=== PATIENT | female | born 1985 | race Two or more races ===

== ENCOUNTER 2025-02-15 14:26 | Emergency (ER) | payer MEDICAID, SELFPAY ==
--- NOTE | 2025-02-15 14:31 | EKG_ITS ---
[facility] Test Date: 2025-02-15 Pat Name: DARLENE ABARCA Department: Room: - Gender: Female Floor Renovator: : 1985 Requested By: ED Temporary Provider Order Number: [id number] Reading MD: ED Temporary Provider Measurements Intervals [place] Rate: 92 P: -8 PA: 130 QRS: 19 QRSD: 96 T: 57 QT: 353 QTc: 439 Interpretive Statements SINUS RHYTHM LOW QRS VOLTAGE IN PRECORDIAL LEADS [QRS DEFLECTION < 1.0 mV IN CHEST LEADS] No previous ECG available for comparison /store/S0/[id number]
[2025-02-15 14:48] VITALS: BP 164/97; PULSE 99; RESP 26; TEMP 37; O2SAT 96
--- NOTE | 2025-02-15 15:04 | XR_ITS ---
Examination: PA lateral chest 2 views TECHNIQUE: Upright PA lateral chest 2 views Exam date and time: February 16, 2024 at 1659 hours INDICATIONS: Onset chest pain today FINDINGS: Normal heart size. Lungs are clear. The osseous structures are intact IMPRESSION: No active disease
--- NOTE | 2025-02-15 15:06 | PD.EDRME ---
Rapid Medical Screening Exam E Arrival date/time: 02/15/25 14:26 39-year-old female presents to the Emergency Department for complaint of shortness of breath Chief Complaint: Shortness of Breath/Dyspnea Vital signs: Vital Signs Temperature 98.6 F 02/15/25 14:48 Pulse Rate 99 02/15/25 14:48 Respiratory Rate 26 H 02/15/25 14:48 Blood Pressure 164/97 H 02/15/25 14:48 Pulse Oximetry (%) 96 02/15/25 14:48 Oxygen Delivery Method Room Air 02/15/25 14:48
[2025-02-15 15:39] LABS: Basophils % (Auto) 0 % (0-2.5); Eosinophils % (Auto) 1 % (0-10); Hemoglobin 13.5 g/dL (12.0-16.0); Lymphocytes # (Auto) 2.1 Thou/mm3 (1.0-4.8); Lymphocytes % (Auto) 17 % (10-50); Mean Corpuscular HGB Conc 34.6 g/dl (31.0-37.0); Mean Corpuscular Hemoglobin 26.5 pg (25.0-35.0); Mean Corpuscular Volume 77 fL (80-100); Monocytes % (Auto) 3 % (0-12); Neutrophils # (Auto) 9.6 Thou/mm3 (1.8-7.7); Neutrophils % (Auto) 78 % (37-80); Platelet Count 301 Thou/mm3 (140-440); RDW Standard Deviation 42.3 fL (36.4-46.3); Red Blood Count 5.09 Miln/mm3 (4.00-5.20); White Blood Count 12.3 Thou/mm3 (3.6-11.0)
[2025-02-15 15:40] LABS: Eosinophils # (Auto) 0.1 Thou/mm3 (0.0-0.5); Immature Granulocytes % (Auto) 1 % (0-0); Immature Granulocytes Auto 0.07 Thou/mm3 (0.00-0.00); Monocytes # (Auto) 0.4 Thou/mm3 (0.0-0.8); Nucleated Red Blood Cell % 0 /100 WBC (0)
[2025-02-15 15:58] LABS: B-Type Natriuretic Peptide < 20 pg/mL (0-100)
[2025-02-15 15:59] LABS: INR 0.9 (0.9-1.3); Partial Thromboplastin Time 24.7 Seconds (22.0-36.0); Prothrombin Time 10.4 Seconds (9.0-12.2)
[2025-02-15 16:00] LABS: Alanine Aminotransferase 23 U/L (10-49); Albumin, Serum 4.5 gm/dL (3.5-5.0); Albumin/Globulin Ratio 1.4 (1.2-2.2); Alkaline Phosphatase 92 U/L (46-116); Anion Gap 11 (7-16); Aspartate Amino Transferase 37 U/L (0-34); BUN/Creatinine Ratio 10 Ratio (12-20); Bilirubin,Total 0.3 mg/dL (0.3-1.2); Blood Urea Nitrogen 9 mg/dL (9-23); Calcium 9.3 mg/dL (8.3-10.6); Calcium (Corrected) 9.3 mg/dL (8.5-10.1); Carbon Dioxide 24.9 mMol/L (20.0-31.0); Chloride 104 mMol/L (98-107); Creatinine (Component) 0.9 mg/dL (0.6-1.3); Estimated Creatinine Clearance 146.7 mL/min (>60); Globulin 3.2 gm/dL (2.3-3.5); Glucose 135 mg/dL (74-106); Magnesium 1.8 mg/dL (1.6-2.6); Osmolality,Calculated 280 (275-295); Potassium 3.6 mMol/L (3.4-5.1); Sodium 140 mMol/L (136-145); Total Protein 7.7 gm/dL (5.7-8.2); Troponin I < 0.020 ng/mL (0.0-0.045); eGFR > 60 See Note
--- NOTE | 2025-02-15 17:21 | PD.EDSOB ---
ED SOB =RME/HPI General Chief Complaint: Shortness of Breath/Dyspnea Stated Complaint: SENT BY [facility] FOR O2 SAT OF 90% Arrival date/time: 02/15/25 14:26 Limitations: no limitations RME / HPI RME / HPI Narrative: 02/15/25 14:26 39-year-old female presents to the Emergency Department for complaint of shortness of breath DR. ALVA MAIN ED EVALUATION: 39 year old female with no known past medical history presents to the Emergency Department accompanied by her friend with complaint of shortness of breath since this morning. Patient states she has been grasping for air. Associated symptoms include facial numbness and tingling and a mild headache. Patient denies any tobacco, alcohol, or substance use. Related Data Previous Rx's ?Medication ?Instructions ?Recorded hydrocodone 5 mg-acetaminophen 300 1 tab PO QID PRN pain #14 tabs 09/03/18 mg tablet (Vicodin) naproxen sodium 275 mg tablet 275 mg PO Q8H PRN pain #20 tabs 09/03/18 albuterol sulfate 90 mcg/actuation 2 inh inhalation Q6H PRN shortness 02/15/25 breath activated powder inhaler of breath #1 ea buspirone 7.5 mg tablet 7.5 mg PO BID #20 tabs 02/15/25 Allergies Allergy/AdvReac Type Severity Reaction Status Date / Time No Known Allergies Allergy Verified 02/15/25 14:29 Review of Systems Review of Systems Systems Reviewed: All systems reviewed, normal except as documented Narrative Review of Systems: GEN: No fever, no chills, no weight loss EYES: No discharge, no visual changes, no pain HEENT: No ear pain, no congestion, no sore throat PULM: + shortness of breath, no cough, no congestion CV: No chest pain, no dyspnea on exertion, no palpitations GI: No nausea, no vomiting, no diarrhea, no pain, no constipation : No frequency, no urgency and no dysuria MUSC/SKEL: No joint pain, no back pain SKIN: No rash PSYCH: No hallucinations, no depression HEME/LYMPH: No easy bleeding or bruising tendencies NEURO: No weakness, + facial numbness and tingling, + mild headache Past Medical History Social History SMOKING STATUS: Never smoker SUBSTANCE USE: does not use ALCOHOL: Never ED Exam General Limitations: Present no limitations General appearance: Present alert and in no apparent distress Head Head exam: Present atraumatic, normocephalic and normal inspection Eye Eye exam: Present normal appearance, PERRL and EOMI ENT ENT exam: Present normal exam, normal oropharynx and mucous membranes moist Neck Neck exam: Present normal inspection, full ROM and trachea midline Chest Chest inspection: Present normal inspection and symmetric chest wall rise Respiratory Respiratory exam: Present normal lung sounds bilaterally Cardiovascular Cardiovascular exam: Present regular rate, normal rhythm and normal heart sounds Abdominal Exam Abdominal exam: Present soft and normal bowel sounds Extremities Exam Extremities exam: Present normal inspection and full ROM Back Exam Back exam: Present normal inspection and full ROM Neurological Exam Neurological exam: Present alert, oriented X3 and CN II-XII intact Psychiatric Psychiatric exam: Present normal affect and normal mood Skin Skin exam: Present warm, dry, intact and normal color Course Quality Measures none Orders Category Date Time Status EKG (ED ONLY) *Do not use* NOW Care 02/15/25 14:31 Completed Discharge Routine Discharge 02/15/25 17:24 Active EKG (ED Only) Stat Exams 02/15/25 14:31 Draft XR chest 2V Stat Exams 02/15/25 15:04 Completed B-Type Natriuretic Peptide Stat Lab 02/15/25 15:14 Completed CBC Stat Lab 02/15/25 15:14 Completed Comprehensive Metabolic Panel Stat Lab 02/15/25 15:14 Completed Magnesium Stat Lab 02/15/25 15:14 Completed Partial Thromboplastin Time Stat Lab 02/15/25 15:14 Completed Prothrombin Time with INR Stat Lab 02/15/25 15:14 Completed Troponin I Stat Lab 02/15/25 15:14 Completed Vital Signs Vital signs: Vital Signs Temperature 98.6 F 02/15/25 14:48 Pulse Rate 99 02/15/25 14:48 Respiratory Rate 26 H 02/15/25 14:48 Blood Pressure 164/97 H 02/15/25 14:48 Pulse Oximetry (%) 96 02/15/25 14:48 Oxygen Delivery Method Room Air 02/15/25 14:48 Procedures -ED EKG Interpretation #1: Date of EK02/15/25 Time of EK:50 Rate: 92 Interpretation: Interpreted by me Additional EKG comment: sinus rhythm, rate 92, no ischemia, normal intervals Shortness of Breath / Dyspnea MDM Narrative MDM Narrative:: I, Rosaura Maninder, am scribing for and in the presence of Dr. Alva. Patient had normal CBC and chemistry Normal BNP and troponin Normal chest x-ray and EKG Patient's symptoms do not match PE Patient's symptoms does not go along with any other diagnoses of interstitial lung disease versus COPD This could be reactive airway disease Most likely this is anxiety There is no evidence of PE no evidence of NM No evidence of pneumonia or CHF Patient be treated with buspirone 7.5 twice a day Also given albuterol inhaler for possibility of reactive airway disease Patient was discharged from edition Final assessment Reactive airway disease versus anxiety Plan As above Patient data External records reviewed:: [facility] previous records (Reviewed last ED visit dated 10/30/18, discharged with the following: Knee sprain) Clinical information provided by:: patient Social determinants that could affect healthcare access:: none Patient has the following chronic illnesses:: Denies any known past medical history, surgeries, daily medications, or known allergies. How is presenting disease/condition affected by chronic disease/condition?: no chronic disease Evaluation data The following diagnostics were reviewed and interpreted by me:: lab results, radiology exam(s) and EKG tracing(s) Lab and/or radiology exams considered but not ordered:: none Interpretation Summary: Procedure(s): XR chest 2V Accession Number(s): [id number] cc: Murphy (LAN),Harry MONTENEGRO; Zia Goode MD~ Examination: PA lateral chest 2 views TECHNIQUE: Upright PA lateral chest 2 views Exam date and time: February 16, 2024 at 1659 hours INDICATIONS: Onset chest pain today FINDINGS: Normal heart size. Lungs are clear. The osseous structures are intact IMPRESSION: No active disease Dictated By: Zia Goode MD Medications / Prescriptions Medications or Prescriptions considered but not ordered:: none Medication administrations:: none Consultations Consultation(s) initiated? (list below): No Diagnosis Shortness of Breath Differential Diagnosis: community acquired pneumonia and other (reactive airway, anxiety) Most likely diagnosis given after review of the tests above:: RAD (reactive airway disease) Anxiety Admission Indicated Admission indicated?: not indicated Admission Request Was there a request for admission?: No Disposition Plan Disposition Plan: Discharge Discharge Attestation Discharge Attestation: The patient and all family members were given an opportunity to ask questions and understood the discharge instructions. Discharge instructions specifically effects, indications for sooner follow up or return to the emergency department, and the expected course of current diagnosis. Patient condition: Stable Discharge Plan Plan Patient Disposition: HOME (Self Care) Patient condition on transfer: Stable Prescriptions/Referrals Prescriptions/Med Rec: New albuterol sulfate 90 mcg/actuation aerosol powdr breath activated 2 inh inhalation Q6H PRN (Reason: shortness of breath) Qty: 1 0RF Rx Instructions: Use with a spacer buspirone 7.5 mg tablet 7.5 mg PO BID Qty: 20 0RF No Action naproxen sodium 275 mg tablet 275 mg PO Q8H PRN (Reason: pain) Qty: 20 0RF hydrocodone-acetaminophen [Vicodin] 5-300 mg tablet 1 tab PO QID MDD 4 PRN (Reason: pain) Qty: 14 0RF Referrals: Obinna Lincoln MD [Primary Care Provider] - In 1 week Problem List Clinical Impression: Anxiety, RAD (reactive airway disease) Patient/Caregiver Discharge Instructions Discharge Activity: activity as tolerated Education Materials: Controlling Asthma Triggers: Irritants, Exercising with Asthma, Anxiety Disorders Tx Therapy, ED Inhaler Use Print Language: Japanese Stand Alone Forms: Radha Award Info., Patient Portal Info Letter
== END 2025-02-15 17:45 | disposition home or self-care (01) ==
PROVIDERS: Nurse Practitioner Primary Care; Emergency Provider Emergency Medicine; PCP Family Medicine
DX: F41.9 Anxiety disorder, unspecified (principal); J45.909 Unspecified asthma, uncomplicated; R94.31 Abnormal electrocardiogram [ECG] [EKG]
CPT/HCPCS: 36415; 71046; 80053; 83735; 83880; 84484; 85025; 85610; 85730; 93005; 99283